=== PATIENT | male | born 1940 | race Caucasian/White ===

== ENCOUNTER 2016-10-05 21:29 | Emergency (ER) | payer OTHER ==
[~2016-10-05] VITALS: Ht 185.4 cm; Wt 83.9 kg
--- NOTE | 2016-10-05 22:05 | NUR ---
Patient BIB [id number] for altered mental status. Per family, patient is agitated and combative. To room 3A.
[2016-10-05] MEDS ORDERED: POTA10TA PO (22:16)
[2016-10-05] MEDS ORDERED: AMLO5TAB2 PO (22:16)
[2016-10-05] MEDS ORDERED: GLIP10TA11 PO (22:16)
[2016-10-05] MEDS ORDERED: BLOO-170 IN (22:16)
[2016-10-05] MEDS ORDERED: ALLO100T PO (22:16)
[2016-10-05] MEDS ORDERED: DIVA125C5 PO (22:16)
[2016-10-05] MEDS ORDERED: CITA10TA9 PO (22:16)
[2016-10-05] MEDS ORDERED: NPH,100V SQ (22:16)
[2016-10-05] MEDS ORDERED: ERGO400T7 PO (22:16)
[2016-10-05] MEDS ORDERED: DONE10TA44 PO (22:16)
[2016-10-05] MEDS ORDERED: OLAN2.5T3 PO (22:16)
[2016-10-05] MEDS ORDERED: TAMS0.4C34 PO (22:16)
[2016-10-05] MEDS ORDERED: ATOR10TA PO (22:16)
[2016-10-05] MEDS ORDERED: WARF5TAB6 PO (22:16)
[2016-10-05] MEDS ORDERED: BENZ-20 PO (22:16)
[2016-10-05] MEDS ORDERED: CYAN500T15 PO (22:16)
[2016-10-05 22:55] LABS: ETHANOL < 3 MG/DL (0-0)
[2016-10-05 22:56] LABS: BASOPHILS % (AUTO) 0.7 % (0.0-2.0); EOSINOPHILS # (AUTO) 0.1 K/uL (0.0-0.7); EOSINOPHILS % (AUTO) 2.2 % (0.0-7.0); HEMATOCRIT 35.6 % (40-50); HEMOGLOBIN 11.9 G/DL (14.0-18.0); LYMPHOCYTES # (AUTO) 0.5 K/uL (20.0-40.0); LYMPHOCYTES % (AUTO) 8.7 % (20.5-51.5); MEAN CORPUSCULAR HEMOGLOBIN 29.4 UUG (27.0-31.0); MEAN CORPUSCULAR HGB CONC 33 g/dL (32.0-37.0); MEAN CORPUSCULAR VOLUME 88.2 FL (82.0-92.0); MONOCYTES # (AUTO) 0.4 K/uL (2.0-10.0); MONOCYTES % (AUTO) 8.2 % (0.0-11.0); NEUTROPHILS # (AUTO) 4.3 K/uL (1.8-8.9); NEUTROPHILS % (AUTO) 80.2 % (38.5-71.5); PLATELET COUNT (AUTO) 95 K/UL (150-450); RED BLOOD CELL COUNT(AUTO) 4.04 MIL/UL (4.7-6.1); RED CELL DISTRIBUTION WIDTH 14.7 % (11.5-14.5); WHITE BLOOD COUNT (AUTO) 5.3 K/UL (4.0-11.2)
[2016-10-05 22:59] LABS: ALANINE AMINOTRANSFERASE 18 U/L (16-63); ALBUMIN 3.5 g/dL (3.4-5.0); ALKALINE PHOSPHATASE 81 U/L (50-136); ASPARTATE AMINOTRANSFERASE 20 U/L (15-37); BILIRUBIN,DIRECT 0.1 mg/dL (0.0-0.2); BILIRUBIN,TOTAL 0.4 mg/dL (0.2-1.0); CALCIUM 9.1 mg/dL (8.5-10.1); CARBON DIOXIDE 27 mmol/L (21-32); CHLORIDE 107 mmol/L (98-107); GLUCOSE 64 mg/dL (74-106); POTASSIUM 3.8 mmol/L (3.5-5.1); SODIUM SERUM 143 mmol/L (136-145); UREA NITROGEN, BLOOD 55 mg/dL (7-18)
[2016-10-05 23:02] LABS: CREATININE 3.5 mg/dL (0.6-1.3)
[2016-10-05 23:07] LABS: THYROID STIMULATING HORMONE 2.578 mIU/mL (0.358-3.740)
[2016-10-05 23:10] LABS: ACETAMINOPHEN < 2.0 ug/mL (10-30)
[2016-10-05 23:24] LABS: BAND % (MANUAL) 2 % (0-10); EOSINOPHILS % (MANUAL) 4 % (0-8); LYMPHOCYTES % (MANUAL) 8 % (20-40); MONOCYTES % (MANUAL) 5 % (2-10); NEUTROPHILS % (MANUAL) 81 % (42-75); PLATELET ESTIMATE DECREASED
[2016-10-05 23:50] LABS: *BILIRUBIN,URIN NEGATIVE (NEGATIVE); *BLOOD, URINE Trace-lysed (NEGATIVE); *CLARITY,URINE CLEAR (CLEAR); *COLOR,URINE YELLOW (YELLOW); *KETONES,URINE NEGATIVE (NEGATIVE); *PROTEIN,URINE 1+ (NEGATIVE); *UROBILINOGEN,URINE 0.2 E.U./dl (NORMAL); LEUKOCYTE ESTERASE ,URINE NEGATIVE (NEGATIVE); NITRITE, URINE NEGATIVE (NEGATIVE); UGLUCOSE NEGATIVE (NEGATIVE)
--- NOTE | 2016-10-05 23:50 | NUR ---
Call placed to [facility] for to Dr. cortez.
[2016-10-05 23:57] LABS: BACTERIA,URINE NONE SEEN /HPF (NONE SEEN); RBC,URINE 0-3 /HPF (0-3); SQUAMOUS EPITHELIAL CELL,UR NONE SEEN /HPF (NONE SEEN); WBC,URINE NONE SEEN /HPF (0-3)
[2016-10-06 00:24] LABS: *AMPHETAMINE, URINE NEGATIVE (NEGATIVE); *BARBITURATE, URINE NEGATIVE (NEGATIVE); *CANNABINOID, URINE NEGATIVE (NEGATIVE); *COCCAINE, URINE NEGATIVE (NEGATIVE); *OPIATE, URINE NEGATIVE (NEGATIVE); *PHENCYCLIDINE SCREEN,URINE NEGATIVE (NEGATIVE)
--- NOTE | 2016-10-06 00:40 | NUR ---
JENNIFER spoke with Dr. Molina Moore.
--- NOTE | 2016-10-06 00:45 | NUR ---
stated she would go home and requests to be called with PT/INR results and transfer information. Phone number on file.
--- NOTE | 2016-10-06 02:56 | NUR ---
notified of transfer info.
--- NOTE | 2016-10-06 03:08 | NUR ---
Patient Tranfers to outside Facility Physician: Dr. Waggoner Location: [facility]
== END 2016-10-06 03:25 | disposition short-term general hospital (02) ==
LOC: ER 21:36
DX: R41.82 Altered mental status, unspecified (principal); I10 Essential (primary) hypertension; I48.91 Unspecified atrial fibrillation; E11.9 Type 2 diabetes mellitus without complications; Z88.6 Allergy status to analgesic agent; Z88.8 Allergy status to other drugs, medicaments and biological substances
CPT/HCPCS: 36415; 70450; 71010; 80307; 84443; 85025; 85610; 93005; A4663; G0480-TC; G6040-TC